=== PATIENT | female | born 1960 | race Caucasian/White ===

== ENCOUNTER 2017-02-06 14:02 | Emergency (ER) | payer OTHER ==
[~2017-02-06] VITALS: Ht 157.5 cm; Wt 95.3 kg
[~2017-02-06 14:02] MED LIST: METFORMIN HCL500 MG PO; PRINIVIL10 MG PO
--- NOTE | 2017-02-06 15:04 | ED AMS/SEIZURE/WEAK/DIZZY ---
History of Present Illness General Chief Complaint: Dizziness Stated Complaint: VOMITING LAST NIGHT/WEAKNESS TODAY Source: patient Exam Limitations: no limitations Vital Signs & Intake/Output Vital Signs & Intake/Output Vital Signs Date Time Temp Pulse Resp B/P Pulse O2 O2 Flow FiO2 Ox Delivery Rate 02/06 1916 98.6 76 18 136/85 98 Room Air 02/06 1751 98.7 127 18 142/94 98 02/06 1525 99.1 131 20 128/64 97 Nasal 2.0L Cannula 02/06 1423 98 Nasal 2.0L Cannula 02/06 1423 145 24 147/75 97 Nasal 2.0L Cannula 02/06 1416 100.0 153 24 185/76 99 Room Air Allergies Coded Allergies: NO KNOWN ALLERGIES (11/13/11) Reconcile Medications Metformin HCl 500 MG TABLET 1 TAB PO BID DIABETES Triage Note: PT TO ED FOR DIZZINESS, NEAR SYNCOPE AND TACHYCARDIA. PT STATING SHE WAS VOMITING AND HAD DIARRHEA LAST NIGHT, FELT BETTER THIS AM AND THEN DEVELOPED A HEADACHE AND SEVERE DIZZINESS. Triage Nurses Notes Reviewed? yes HPI: 56 yo female with hx of DM and HTN, uncontrolled for 2 years due to lack of insurance, here with multiple medical complaints. she has not been feeling well for the last 2 days. Started with nausea and vomiting multiple times yesterday, last vomiting at 5 AM today and she is no longer nauseous or vomiting since then however she is feeling weak and dizzy lightheaded which are worse with exertion and standing. She states that her grandson had a "stomach bug" with nausea and vomiting a few days ago as well. She has a mild to moderate headache. She is complaining of increased thirst and increased urination. She denies any abdominal pain or urinary symptoms of urgency or burning or hematuria. No chills or sweats. She has had a mild URI over the last week or so with mild cough and runny nose. No productive sputum. (LARON YAN) Past History Travel History Traveled to [place] past 21 day No Medical History Any Pertinent Medical History? see below for history Neurological: NONE EENT: NONE Cardiovascular: hypertension Respiratory: NONE Gastrointestinal: NONE Hepatic: NONE Renal: NONE Musculoskeletal: NONE Psychiatric: NONE Endocrine: diabetes Blood Disorders: NONE Cancer(s): NONE Other Medical Hx: Obesity Surgical History Surgical History: non-contributory Psychosocial History What is your primary language Welsh Tobacco Use: Never used ETOH Use: denies use Illicit Drug Use: denies illicit drug use Family History Hx Contributory? No (LARON YAN) Review of Systems Review of Systems Constitutional: Reports: see HPI. EENTM: Reports: no symptoms. Respiratory: Reports: no symptoms. Cardiovascular: Reports: no symptoms. GI: Reports: see HPI. Genitourinary: Reports: no symptoms. Musculoskeletal: Reports: no symptoms. Skin: Reports: no symptoms. Neurological/Psychological: Reports: see HPI. Hematologic/Endocrine: Reports: no symptoms. Immunologic/Allergic: Reports: no symptoms. All Other Systems: Reviewed and Negative (LARON YAN) Physical Exam Physical Exam General Appearance: well developed/nourished Comments: Well-developed well-nourished person in no acute distress HEENT: Normal EENT exam, extraocular motion intact, no nystagmus. Pupils equally round and reactive to light. Nose is atraumatic. External auditory canal and Tympanic membranes clear. Pharynx normal. No swelling or edema. Neck: Supple, no lymphadenopathy, normal range of motion without pain or tenderness Back: Nontender, no CVA tenderness. Full range of motion Cardiovascular: Tachycardic with a regular rhythm no murmurs, normal JVP Respiratory: Chest nontender. No respiratory distress. Breath sounds clear to auscultation bilaterally Abdomen: Obese, reducible ventral hernia noted, Soft, nontender nondistended, no appreciable organomegaly. Normal bowel sounds. No ascites Extremity: No edema, no calf tenderness to palpation, normal and equal pulses. Neuro: Alert oriented x3, motor sensory normal, cranial nerves II through XII grossly intact. Skin: No appreciable rash on exposed skin, skin is warm and dry. Psych: Mood and affect is normal, memory and judgment is normal. Core Measures ACS in differential dx? Yes CVA/TIA Diagnosis: No Severe Sepsis Present: No BC x2: Yes Lactic Acid x2: Yes IV ABX Broad Spectrum: No NS/LR Started: Yes Septic Shock Present: No (LARON YAN) Progress Differential Diagnosis: arrythmia, alcohol intoxication, anemia, benign positional vertigo, CVA/stroke, dehydration, drug intoxication, encephalitis, electrolyte imbalance, GI bleed, hypoglycemia, hypoxia, intracranial Hem., intracranial mass/tumor, labrynthitis, meningitis, Meniere's disease, migraine MINER, multiple sclerosis, pneumonia, postural hypotension, presyncope, post- traumatic vertigo, sepsis, seizure disorder, subarachnoid Hem., UTI/pyelo, vertebrobasilar insuff Plan of Care: Orders Procedure Date/time Status FingerStick- Glucose 02/06 1853 Active LACTIC ACID 02/06 1736 Complete BLOOD CULTURE 02/06 1551 Active TSH REFLEX 02/06 1447 Complete LACTIC ACID 02/06 1447 Complete MIXED VENOUS BLOOD GAS (GEN) 02/06 1434 Complete URINALYSIS 02/06 1434 Complete PHOSPHORUS 02/06 1434 Complete SERUM OSMOLALITY 02/06 1434 Complete MAGNESIUM 02/06 1434 Complete COMPREHENSIVE METABOLIC PANEL 02/06 143 Complete CBC WITHOUT DIFFERENTIAL 02/06 1434 Complete ACETONE 02/06 143 Complete EKG 02/06 1405 Active Laboratory Tests 02/06/17 1725: Lactic Acid 3.3 H 02/06/17 1715: Urine Color YEL, Urine Clarity CLEAR, Urine pH 6.0, Ur Specific [place] 1.020, Urine Protein TRACE H, Urine Ketones 15 H, Urine Nitrite NEG, Urine Bilirubin NEG, Urine Urobilinogen 0.2, Ur Leukocyte Esterase NEG, Ur Microscopic SEDIMENT EXAMINED, Urine RBC RARE, Urine WBC RARE, Ur Epithelial Cells MANY H, Hyaline Casts RARE H, Urine Mucus RARE, Urine Hemoglobin NEG, Urine Glucose >=1000 H 02/06/17 1447: Bicarbonate Actual 21 L, Mixed VBG pH 7.40, Mixed VBG pCO2 35 L, Mixed VBG O2 Saturation 47 H, Carboxyhemoglobin 0.9 L, O2 Concentration % 3L, O2 Delivery Method NC, Anion Gap 15, Estimated GFR > 60, BUN/Creatinine Ratio 20.0, Glucose 372 H, Serum Osmolality 290, Lactic Acid 5.1 H, Calcium 9.0, Phosphorus 3.3, Magnesium 1.2 L, Total Bilirubin 0.7, AST 22, ALT 34, Alkaline Phosphatase 104, Total Protein 7.0, Albumin 3.9, Globulin 3.1, Albumin/Globulin Ratio 1.3, TSH & T3 &Free T4 Intrp 0.343, CBC w Diff NO MAN DIFF REQ, RBC 5.21, MCV 80.5 L, MCH 26.3 L, RDW 14.5, MPV 8.9, Gran % 91.6 H, Lymphocytes % 4.9 L, Monocytes % 3.3, Eosinophils % 0, Basophils % 0.2, Absolute Granulocytes 11.9 H, Absolute Lymphocytes 0.6 L, Absolute Monocytes 0.4, Absolute Eosinophils 0, Absolute Basophils 0, PUBS MCHC 32.7 L, Phlebotomy Draw Site LAC/VENOUS, Acetone Level NEGATIVE 02/06/17 1436: Lactic Acid Cancelled, TSH &T3 &Free T4 Intrp Cancelled Microbiology 02/06 1724 BLOOD: Blood Culture - RECD 02/06 1600 BLOOD: Blood Culture - RECD Initial ED EKG: NSR, rate (150), nonspecific ST T wave chg (RATE RELATED) Prior EKG: changed (FASTER) Rhythm Strip: sinus tachycardia Comments: Septic workup, blood cultures lactic acid and hyperglycemic workup ensues. Patient given IV fluids, 3 L total, 30 mg of Toradol IV. She was reevaluated multiple times. Initially lasted gassy came back elevated at 5.5. It was repeated a few hours later and it has decreased to 3.3. Patient had multiple re -evaluations and she continues to feel better upon each reevaluation, she has minimal headache, her heart rate has shown improvement, down to 110 bpm. I looked back at her previous records, she has been here several times and has never had a heart rate below 100. Her blood sugar was elevated as well, this was rechecked and recheck shows 320 however she did have a meal tray and a cookie while she was here. Patient feels well, she is requesting to be discharged home. Discussed with her, complications of persistent hyperglycemia and persistent fast heart rate. We'll place her on metformin as she believes she has been on this in the past before she lost her insurance recommend that she follows up with a primary care doctor or [facility]. I do not feel as though she is septic or has intra-abdominal infection or cellulitis, but cultures were drawn, she understands that we may need to call her back at the cultures come back positive or she should return with worsening symptoms. (LARON YAN) Departure Departure Disposition: HOME OR SELF CARE Condition: Stable Clinical Impression Primary Impression: Hyperglycemia Secondary Impressions: Dehydration, Lactic acidosis, Tachycardia Referrals: [facility] MADI RUIZ DO (PCP/Family) Additional Instructions: Drink plenty of water, take metformin for your elevated blood sugar and diabetes. Please follow up with a primary care doctor. Return with worsening nausea vomiting increased thirst or increased urination. Return with any fever or abdominal pain Departure Forms: Customer Survey General Discharge Information Prescriptions: Current Visit Scripts Metformin HCl 1 TAB PO BID #60 TAB (RODRIGUEZ FELIX,LARON) PA/[employer] Co-Sign Statement Statement: ED Attending supervision documentation- [] I saw and evaluated the patient. I have also reviewed all the pertinent lab results and diagnostic results. I agree with the findings and the plan of care as documented in the PA's/[employer]'s documentation. [X] I have reviewed the ED Record and agree with the PA's/[employer]'s documentation. [] Additions or exceptions (if any) to the PAs/[employer]'s note and plan are summarized below: [] (DEEP GAY,DANUTA Barbour)
[2017-02-06 15:06] LABS: ABSOLUTE BASOPHIL COUNT 0 /CUMM (0.0-0.2); ABSOLUTE EOSINOPHIL COUNT 0 /CUMM (0.0-0.7); ABSOLUTE GRANULOCYTE CT 11.9 /CUMM (1.4-6.5); ABSOLUTE LYMPH COUNT 0.6 /CUMM (1.2-3.4); ABSOLUTE MONOCYTE COUNT 0.4 /CUMM (0.10-0.60); BASOPHIL % 0.2 % (0.0-2.0); EOSINOPHIL % 0 % (0-5); MEAN CORPUSCULAR HGB 26.3 PG (27.0-31.0); MEAN CORPUSCULAR HGB CONC 32.7 G/DL (33.0-37.0); MEAN CORPUSCULAR VOLUME 80.5 FL (81.0-99.0); MEAN PLATELET VOLUME 8.9 FL (7.4-10.4); PLATELET COUNT 278 /CUMM (130-400); RBC DISTRIBUTION WIDTH 14.5 % (11.5-14.5); RED BLOOD CELL CT 5.21 /CUMM (4.20-5.40)
--- NOTE | 2017-02-06 15:19 | RADIOLOGY REPORT ---
EXAMINATION:\H\ \N\XR CHEST CLINICAL INFORMATION: Cough, fever. Evaluate for pneumonia. COMPARISON: Multiple priors, most recent chest radiograph dated 04/30/2014. TECHNIQUE: AP portable view of the chest was obtained. FINDINGS: No focal airspace consolidation. No pleural effusion or pneumothorax. No cardiomediastinal silhouette enlargement. The visualized osseous structures are unremarkable. IMPRESSION: No focal consolidation.
[2017-02-06 15:25] LABS: GRANULOCYTE % 91.6 % (42.2-75.2)
[2017-02-06] MEDS ORDERED: METFORMIN HCL500 M3 PO (18:59)
[2017-02-06 19:16] VITALS: BP 136/85
== END 2017-02-06 19:16 ==
LOC: ERH 14:02
PROVIDERS: Physician Assistant Surgical
DX: E11.65 Type 2 diabetes mellitus with hyperglycemia (principal); E86.0 Dehydration; E87.2 Acidosis; R00.0 Tachycardia, unspecified; I10 Essential (primary) hypertension; Z79.84 Long term (current) use of oral hypoglycemic drugs
CPT/HCPCS: 81001; 87040; 93005; 93010; 96374; 96375; J1885